=== PATIENT | female | born 1985 | race Hispanic/Latino ===

== ENCOUNTER 2018-12-09 20:23 | Emergency (ER) | payer SELFPAY ==
[2018-12-09] MEDS ORDERED: ONDANSETRON HCL 4 MG/2 ML VIAL ONE (20:39)
[2018-12-09] MEDS ORDERED: KETOROLAC TROMETHAMINE 30MG/ML ONE (20:40)
[2018-12-09 20:49] LABS: APPEARANCE,URINE CLOUDY (CLEAR); BILIRUBIN,URINE NEGATIVE (NEGATIVE); COLOR,URINE YELLOW (YELLOW); GLUCOSE, URINE (UA) NEGATIVE (NEGATIVE); KETONES,URINE NEGATIVE (NEGATIVE); LEUKOCYTE ESTERASE ,URINE MODERATE (NEGATIVE); NITRATE,URINE NEGATIVE (NEGATIVE); OCCULT BLOOD,URINE TRACE-INTACT (NEGATIVE); PH,URINE >=9.0 (5.0-8.0); PROTEIN,URINE 30 mg/dL (NEGATIVE); UROBILINOGEN,URINE 0.2 mg/dL (0.2-1.0)
[2018-12-09 20:53] LABS: HCG,QUAL RESULT NEGATIVE (NEGATIVE)
[2018-12-09 21:00] LABS: BASOPHILS % (AUTO) 0.3 % (0.0-5.0); EOSINOPHILS % (AUTO) 0.1 % (0.0-8.0); HEMATOCRIT 34.7 % (36-48); LYMPHOCYTES % (AUTO) 6.3 % (21.0-51.0); MEAN CORPUSCULAR HEMOGLOBIN 27.5 pg (27.0-33.0); MEAN CORPUSCULAR HGB CONC 32.8 g/dL (32.0-36.0); MONOCYTES % (AUTO) 9.5 % (3.0-13.0); NEUTROPHILS % (AUTO) 83.8 % (40.0-77.0); PLATELET COUNT (AUTO) 316 K/uL (130-400); RED BLOOD CELL COUNT(AUTO) 4.13 MIL/uL (4.00-5.50); RED CELL DISTRIBUTION WIDTH 18.9 % (11.0-15.5); WHITE BLOOD COUNT (AUTO) 13.3 K/uL (4.8-10.8)
[2018-12-09 21:10] LABS: POTASSIUM 3.7 mmol/L (3.5-5.1)
[2018-12-09 21:14] LABS: ALBUMIN 3.6 g/dL (3.5-5.0); BILIRUBIN,TOTAL 0.6 mg/dL (0.2-1.0); TOTAL PROTEIN, SERUM 7.9 g/dL (6.0-8.3)
[2018-12-09] MEDS ORDERED: IOHEXOL-350 75 ML VIAL IV ONE (21:19)
[2018-12-09 21:28] LABS: BACTERIA,URINE Rare /HPF (None Seen); SQUAMOUS EPITHELIAL CELL,UR Few /HPF (0-2); WBC,URINE 26-50 /HPF (0-1)
[2018-12-09] MEDS ORDERED: CEFTRIAXONE SODIUM 1 GM ONE (22:22)
== END 2018-12-09 23:11 | disposition home or self-care (01) ==
LOC: EDH 20:23
DX: N30.00 Acute cystitis without hematuria (principal); Z79.899 Other long term (current) drug therapy; Z72.0 Tobacco use; Z98.890 Other specified postprocedural states
CPT/HCPCS: 36415; 74177; 80053; 81001; 81025; 83605; 85025; 87040 ×2; 87077; 87088; 87186; 87804 ×2; 96361; 96374; 96375; 99284; J0696; J1885; J2405; Q9967

== ENCOUNTER 2022-12-17 14:11 | Emergency (ER) | payer OTHER ==
[~2022-12-17] VITALS: Ht 157.5 cm; Wt 54.4 kg
[2022-12-17] MEDS ORDERED: 0.9%NACL 1000ML 1,000 ML IV ONE (15:00)
[2022-12-17] MEDS ORDERED: ONDANSETRON 4MG INJ IVP ONE (15:00)
[2022-12-17 15:03] LABS: BASOPHILS % (AUTO) 0.6 % (0.0-5.0); EOSINOPHILS % (AUTO) 1.3 % (0.0-8.0); HEMATOCRIT 32.4 % (36-48); LYMPHOCYTES % (AUTO) 42.4 % (21.0-51.0); MEAN CORPUSCULAR HEMOGLOBIN 27.8 pg (27.0-33.0); MEAN CORPUSCULAR HGB CONC 31.5 g/dL (32.0-36.0); MEAN CORPUSCULAR VOLUME 88.3 fL (79-99); MONOCYTES % (AUTO) 6.3 % (3.0-13.0); NEUTROPHILS % (AUTO) 49.2 % (40.0-77.0); PLATELET COUNT (AUTO) 310 K/uL (130-400); RED BLOOD CELL COUNT(AUTO) 3.67 MIL/uL (4.00-5.50); RED CELL DISTRIBUTION WIDTH 15.5 % (11.0-15.5); WHITE BLOOD COUNT (AUTO) 5.4 K/uL (4.8-10.8)
[2022-12-17 15:13] LABS: CREATININE 0.8 mg/dL (0.5-1.5); POTASSIUM 3.5 mmol/L (3.5-5.1)
[2022-12-17 15:22] LABS: ALBUMIN 3.3 g/dL (3.5-5.0); TOTAL PROTEIN, SERUM 6.2 g/dL (6.0-8.3)
[2022-12-17 16:03] LABS: APPEARANCE,URINE TURBID (CLEAR); BILIRUBIN,URINE NEGATIVE (NEGATIVE); COLOR,URINE LIGHT-ORANGE (YELLOW); GLUCOSE, URINE (UA) NEGATIVE (NEGATIVE); KETONES,URINE NEGATIVE (NEGATIVE); LEUKOCYTE ESTERASE ,URINE 500 Leu/uL (NEGATIVE); NITRATE,URINE NEGATIVE (NEGATIVE); OCCULT BLOOD,URINE MODERATE (NEGATIVE); PROTEIN,URINE 70 mg/dL (NEGATIVE); UROBILINOGEN,URINE 0.2 mg/dL (0.2-1.0)
[2022-12-17 16:09] LABS: BACTERIA,URINE MANY /HPF (None Seen); SQUAMOUS EPITHELIAL CELL,UR MOD /HPF (0-2); WBC,URINE >100 /HPF (0-1); YEAST,URINE BUDDING FEW /HPF (None Seen)
[2022-12-17 16:11] LABS: HCG,QUALITATIVE URINE NEGATIVE (NEGATIVE)
[2022-12-17] MEDS ORDERED: CEPH500B PO (16:45)
[2022-12-17] MEDS ORDERED: CEFTRIAXONE 1G VIAL IVP ONE (17:00)
[2022-12-17 17:19] VITALS: BP 99/57
== END 2022-12-17 17:20 | disposition home or self-care (01) ==
LOC: EDH 14:11
DX: N39.0 Urinary tract infection, site not specified (principal); R53.1 Weakness; F32.A Depression, unspecified; Z20.822 Contact with and (suspected) exposure to COVID-19; Z98.890 Other specified postprocedural states
CPT/HCPCS: 99285; 96374; 71045; 87635; 96361; 96375; 84484; 80053; 85025; 87088; 87804 ×2; 81001; 81025; 36415; 93005; C9803; J7030; J0696; J2405

== ENCOUNTER 2024-06-28 12:12 | Emergency (ER) | payer SELFPAY ==
[~2024-06-28] VITALS: Ht 154.9 cm; Wt 59.4 kg
[~2024-06-28 12:12] MED LIST: CEPH500B PO
[2024-06-28] MEDS: FAMOTIDINE 20MG TAB PO ONE (12:39)
[2024-06-28] MEDS: ondanSETRON ODT 4MG TAB SL ONE (12:39)
[2024-06-28 13:37] LABS: RAPID GROUP A STREP negative (NEGATIVE)
[2024-06-28 13:47] LABS: COVID19 (SARS ANTIGEN RAPID) PRESUMPTIVE NEGATIVE (NEGATIVE); INFLUENZA TYPE A Negative For Type A (NEGATIVE); INFLUENZA TYPE B Negative For Type B (NEGATIVE)
[2024-06-28] MEDS ORDERED: ONDA-243 PO (13:52)
[2024-06-28] MEDS ORDERED: SUCR1TAB28 PO (13:52)
[2024-06-28] MEDS ORDERED: OMEP40CA21 PO (13:52)
[2024-06-28 13:57] VITALS: BP 115/83; PULSE 64; RESP 16; TEMP 97.9; O2SAT 100
== END 2024-06-28 14:06 | disposition home or self-care (01) ==
LOC: EDH 12:12
DX: K29.00 Acute gastritis without bleeding (principal); Z20.822 Contact with and (suspected) exposure to COVID-19; R11.2 Nausea with vomiting, unspecified; R59.0 Localized enlarged lymph nodes; Z98.890 Other specified postprocedural states
CPT/HCPCS: 87426; 87804; 87880